=== PATIENT | male | born 1955 | race Hispanic/Latino ===

== ENCOUNTER → 2021-09-04 | Day surgery (SDC) | payer OTHER ==
[2021-09-02 09:04] LABS: BASOPHILS # (AUTO) 0.1 (0.0-0.1); BASOPHILS % 0.8 % (0.0-1.0); EOSINOPHILS # (AUTO) 0.2 (0.0-0.4); HEMATOCRIT 44.9 % (38.2-49.6); HEMOGLOBIN 15.3 g/dL (14.0-18.0); LYMPHOCYTES # (AUTO) 2.7 (1.0-3.2); LYMPHOCYTES % 36.7 % (18.0-39.1); MEAN CORPUSCULAR HGB CONC 34.1 g/dL (31-35); MONOCYTES # (AUTO) 0.8 (0.2-0.8); MONOCYTES % 10.1 % (4.4-11.3); NEUTROPHILS # (AUTO) 3.6 (2.1-6.9); NEUTROPHILS % 48.9 % (38.7-80.0); PLATELET COUNT 226 x10e3/uL (140-360); RED BLOOD COUNT 5.28 x10e6/uL (4.3-5.7); RED CELL DISTRIBUTION WIDTH 13.4 % (11.7-14.4)
[~2021-09-04] MED LIST: ZESTRIL10 MG PO
[2021-09-04 09:35] VITALS: BP 119/71
== END | disposition home or self-care (01) ==
LOC: OR 07:25
PROVIDERS: ATTEND Internal Medicine Gastroenterology
DX: Z12.11 Encounter for screening for malignant neoplasm of colon (principal); K64.8 Other hemorrhoids; Z71.3 Dietary counseling and surveillance; E66.9 Obesity, unspecified; I10 Essential (primary) hypertension; I44.0 Atrioventricular block, first degree; F17.200 Nicotine dependence, unspecified, uncomplicated; Z01.810 Encounter for preprocedural cardiovascular examination; Z01.812 Encounter for preprocedural laboratory examination; Z20.822 Contact with and (suspected) exposure to COVID-19; Z68.35 Body mass index [BMI] 35.0-35.9, adult; Z86.16 Personal history of COVID-19
CPT/HCPCS: 36415; 45378; 85025; 93005; U0002

== ENCOUNTER → 2025-08-23 | Day surgery (SDC) | payer MEDICARE ==
[2025-08-15 09:55] LABS: BASOPHILS % 0.4 % (0.0-1.0); EOSINOPHILS % 2.6 % (0.0-6.0); LYMPHOCYTES % 38.9 % (18.0-39.1); MONOCYTES % 11.3 % (4.4-11.3); NEUTROPHILS % 46.4 % (38.7-80.0); RED CELL DISTRIBUTION WIDTH 13.7 % (11.7-14.4)
[~2025-08-23] MED LIST changes: +LIDOCAINE HCL 2% LOCAL INJ 5 ML SDV VIAL INJ ONE; +LIPITOR10 MG PO; +LISINOPRIL-HCT1 EAC1 PO; +MELOXICAM7.5 MG PO; +PROPOFOL IV EMULSION 50 ML IV ONE
[2025-08-23] MEDS: LACTATED RINGER'S 1,000 ML ONE (07:46)
[2025-08-23 09:05] VITALS: BP 119/74; PULSE 66; RESP 18; O2SAT 100
== END | disposition home or self-care (01) ==
LOC: OR 06:25
PROVIDERS: ATTEND Internal Medicine Gastroenterology
DX: Z12.11 Encounter for screening for malignant neoplasm of colon (principal); K64.8 Other hemorrhoids; I10 Essential (primary) hypertension; E78.5 Hyperlipidemia, unspecified; Z78.9 Other specified health status; Z01.810 Encounter for preprocedural cardiovascular examination; Z01.812 Encounter for preprocedural laboratory examination; Z79.1 Long term (current) use of non-steroidal anti-inflammatories (NSAID); Z79.899 Other long term (current) drug therapy; Z68.36 Body mass index [BMI] 36.0-36.9, adult; Z71.3 Dietary counseling and surveillance
CPT/HCPCS: 36415; 85025; 93005; G0121; J2003; J2704; J7121; 45378